=== PATIENT | female | born 1965 ===

== ENCOUNTER 2024-05-02 05:44 | Day surgery (SDC) | payer OTHER ==
[2024-04-22 11:01] VITALS: BP 116/80
[~2024-05-02] VITALS: Ht 167.6 cm; Wt 81.6 kg
[~2024-05-02 05:44] MED LIST: CARAFATE1 GM PO; FLOVENT; PROAIR RESPICL90 MCG; SINGULAIR10 MG; SYNTHROID112 MCG PO; ZYRTEC10 MG
[2024-05-02] MEDS ORDERED: CEFAZOLIN SODIUM 1,000 MG VIAL IV ONE (11:00)
[2024-05-02] MEDS ORDERED: CHLORHEXIDINE GLUCONATE 120 ML BOTTLE TOP ONE (11:00)
[2024-05-02] MEDS ORDERED: EPINEPHRINE HCL/PF 1 MG/ML AMPUL IR ONE (11:00)
[2024-05-02] MEDS ORDERED: TRIAMCINOLONE ACETONIDE 40 MG/ML VIAL IJ ONE (11:15)
[2024-05-02] MEDS ORDERED: DUI500 PO (11:21)
[2024-05-02] MEDS ORDERED: TRAM1TAB98 PO (11:22)
[2024-05-02] MEDS ORDERED: OxyCODONE HCL/APAP UD (PERCOCET) PO PRN (11:30)
[2024-05-02] MEDS ORDERED: CEFADROXIL 500 MG CAPSULE PO SCH (21:00)
== END 2024-05-02 15:50 | disposition home or self-care (01) ==
LOC: CIR.AMB 05:44
PROVIDERS: ATTEND Orthopaedic Surgery Sports Medicine
DX: S83.281A Other tear of lateral meniscus, current injury, right knee, initial encounter (principal); M17.11 Unilateral primary osteoarthritis, right knee; M23.51 Chronic instability of knee, right knee; M22.41 Chondromalacia patellae, right knee; Z88.6 Allergy status to analgesic agent; Z91.013 Allergy to seafood; E78.5 Hyperlipidemia, unspecified; E03.8 Other specified hypothyroidism; J45.909 Unspecified asthma, uncomplicated